=== PATIENT | female | born 1925 | race African-American/Black ===

== ENCOUNTER 2016-10-20 11:28 | Emergency (ER) | payer MEDICARE | END 2016-10-20 16:17 | disposition home or self-care (01) | LOC: ER 11:47 | DX: G40.309 Generalized idiopathic epilepsy and epileptic syndromes, not intractable, without status epilepticus (principal); D64.9 Anemia, unspecified | CPT/HCPCS: 36415; 70450; 80053; 81003; 82947; 85025; 93005 ==